=== PATIENT | female | born 1990 | race Two or more races ===

== ENCOUNTER 2018-11-16 21:35 | Observation (INO) | payer MEDICAID ==
[~2018-11-16] VITALS: Ht 167.6 cm; Wt 95.7 kg
[2018-11-16 22:57] LABS: Urine Bacteria FEW /hpf (None Seen); Urine Blood 3+ /uL (Negative); Urine Mucus FEW (None Seen); Urine Specific Gravity 1.021 (1.001-1.035); Urine WBC 69 /hpf (0 - 5)
== END 2018-11-16 23:38 | disposition home or self-care (01) | DRG 566 ==
LOC: LDRP 21:35
PROVIDERS: ADMIT Obstetrics & Gynecology; ATTEND Obstetrics & Gynecology
DX: O26.853 Spotting complicating pregnancy, third trimester (principal); O26.893 Other specified pregnancy related conditions, third trimester; N89.8 Other specified noninflammatory disorders of vagina; Z3A.36 36 weeks gestation of pregnancy; Z87.891 Personal history of nicotine dependence
CPT/HCPCS: 59025; 76815; 81001; 81002; G0378

== ENCOUNTER 2018-12-09 04:19 | Inpatient (IN) | payer MEDICAID ==
[~2018-12-09] VITALS: Ht 170.2 cm; Wt 96.2 kg
[2018-12-09] VITALS (13 sets, daily range): BP systolic 105–121; BP diastolic 61–78
[2018-12-09 05:54] LABS: Basophils # (auto) 0.1 uL; Basophils % (auto) 0.6 % (0.0-2.0); Eosinophils # (auto) 0.1 uL; Eosinophils % (auto) 0.9 % (0.0-7.0); Hematocrit 38.7 % (36.0-46.0); Hemoglobin 12.9 g/dL (12.2-16.2); Lymphocytes # (auto) 1.7 uL; Mean Corpuscular Hemoglobin 28.2 pg (28.0-32.0); Mean Corpuscular Hgb Conc. 33.2 g/dL (32.0-36.0); Monocytes # (auto) 0.4 uL; Monocytes % (auto) 4.1 % (0.0-12.0); Neutrophils # (auto) 8.5 uL; Neutrophils % (auto) 78.4 % (37.0-80.0); Platelet Count (auto) 218 10^3/uL (140-450); Red Blood Cells 4.55 10^6/uL (4.0-5.20); Red Cell Distribution Width 17.6 % (11.8-14.3); White Blood Cell 10.8 10^3/uL (4.4-10.8)
[2018-12-09 06:09] LABS: INR 0.83 (0.9-1.15); Partial Thromboplastin Time 27.1 sec (23.78-33.04)
[2018-12-09 06:15] LABS: Albumin 2.2 g/dL (3.4-5.0); BUN/Creatinine Ratio 10.2; Calcium 8.2 mg/dL (8.5-10.1); Potassium 3.8 mmol/L (3.5-5.1)
[2018-12-09 06:17] LABS: Bilirubin, Total 0.3 mg/dL (0.2-1.0); Total Protein 6.6 g/dL (6.4-8.2)
[2018-12-09 06:39] LABS: Urine Bacteria FEW /hpf (None Seen); Urine Blood TRACE /uL (Negative); Urine Mucus FEW (None Seen); Urine Specific Gravity 1.014 (1.001-1.035); Urine WBC 98 /hpf (0 - 5)
[2018-12-09] MEDS ORDERED: PREN-96 PO (06:52)
[2018-12-09] MEDS ORDERED: TETRACAINE 1% INJ 2 ML VIAL IJ ONE (06:53)
[2018-12-09] MEDS: LACTATED RINGER'S 1,000 ML IV SCH ×4 (06:54→20:37)
[2018-12-09] MEDS ORDERED: ONDANSETRON HCL 4 MG/2 ML VIAL ONE (07:01)
[2018-12-09] MEDS ORDERED: SODIUM CHLORIDE LOCK 20 ML ONE (07:01)
[2018-12-09] MEDS ORDERED: ceFAZolin 1GM VL ONE (07:01)
[2018-12-09] MEDS ORDERED: MORPHINE SULF(PF) 0.5MG/ML 10ML VIAL ONE (07:01)
[2018-12-09] MEDS ORDERED: OXYTOCIN 10 UNIT/ML 10ML VIAL ONE (07:01)
[2018-12-09] MEDS ORDERED: ePHEDrine SULFATE 50 MG/ML AMP ONE (07:01)
[2018-12-09] MEDS ORDERED: MIDAZOLAM HCL 1MG/1ML-2 ML VIAL ONE ×2 (07:01→09:34)
[2018-12-09] MEDS ORDERED: fentaNYL CITRATE 100 MCG/2 ML VL ONE (07:01)
[2018-12-09] MEDS ORDERED: EPINEPHrine HCL 1 MG/1 ML AMP ONE (07:04)
[2018-12-09] MEDS ORDERED: LACTATED RINGER'S 1,000 ML IV ONE (07:45)
[2018-12-09 08:45] LABS: Alcohol, Urine < 3.0 mg/dL (0-5); Amphetamine Screen, Urine NEGATIVE (NEGATIVE); Barbiturate Scree,Urine NEGATIVE (NEGATIVE); Benzodiazephine Screen, Urine NEGATIVE (NEGATIVE); Cannabinoid Screen, Urine NEGATIVE (NEGATIVE); Cocaine Screen, Urine NEGATIVE (NEGATIVE); Phencyclidine Screen, Urine NEGATIVE (NEGATIVE)
--- NOTE | 2018-12-09 09:23 | NUR ---
[place] Admission Note Repeat : Repeat of viable baby girl by . dried, stimulated, weighed, then taken to mother. Apgars 8/9. ID bands applied on , mother, and father. Education on the benefits of SSC and encouragement of given. Infant swaddled and taken to nursery by JESUS Francisco. Addendum: 12/09/18 at 1258 by FRANK DA SILVA RN Charted on incorrect pt.
--- NOTE | 2018-12-09 09:35 | NUR ---
NATALIE recnaga from Praveen Francisco RN. Addendum: 12/09/18 at 1258 by FRANK DA SILVA RN Charted on incorrect patient
--- NOTE | 2018-12-09 09:40 | NUR ---
Assessment: Footprints obtained, measurements, Dubowitz and assessment completed. swaddled and being held by FOB. Addendum: 12/09/18 at 1258 by FRANK DA SILVA RN Charted on incorrect pt.
[2018-12-09 10:02] LABS: Opiate Scree,Urine NEGATIVE (NEGATIVE)
[2018-12-09] MEDS ORDERED: LACTATED RINGER'S 1,000 ML IV SCH (10:09)
[2018-12-09] MEDS ORDERED: ONDANSETRON HCL 4 MG/2 ML VIAL IV PRN (10:15)
[2018-12-09] MEDS ORDERED: diphenhdrAMINE HCL 50 MG/1 ML VL IV PRN (10:15)
[2018-12-09] MEDS ORDERED: HYDROmorphone HCL 2 MG/ML VL IV PRN ×2 (10:15)
[2018-12-09] MEDS ORDERED: NALOXONE HCL 0.4 MG/ML VIAL IV PRN (10:15)
[2018-12-09] MEDS ORDERED: KETOROLAC TROMETH 30 MG/ML 1ML VIAL IV ONE (10:15)
[2018-12-09] MEDS ORDERED: METOCLOPRAMIDE HCL 5MG/ml INJ 2ml VIAL IV ONE (10:15)
--- NOTE | 2018-12-09 10:20 | NUR ---
Teaching: Infant taken to mother in PACU. Reviewed information in [facility] booklet with patient. Discussed benefits of and risks associated with not . Discussed different positions, proper latch, feeding cues, and baby-led . Provided information of medication side effects related to . All questions and concerns addressed at this time. Patient verbalized understanding of information. Infant latched without difficulty. Addendum: 12/09/18 at 1258 by FRANK DA SILVA RN Charted on incorrect pt.
--- NOTE | 2018-12-09 11:30 | NUR ---
Infant reswaddled and taken to nursery. Addendum: 12/09/18 at 1259 by FRANK DA SILVA RN Charted on incorrect pt.
--- NOTE | 2018-12-09 13:09 | NUR ---
Post Op for LDRP: Received patient from PACU via bed to room 8B. Patient A/A/Ox4, abdominal binder and bilateral SCD's are in place, IV fluids placed on pump and infusing per order, incisional site dressing clean/dry/intact and erickson catheter to gravity draining clear yellow urine. Incentive Spirometer at bedside and instruction on proper use with return demonstration done by patient. Vital signs taken.
--- NOTE | 2018-12-09 13:10 | NUR ---
Infant taken to room 8B to be with mother. Stable.
--- NOTE | 2018-12-09 13:20 | NUR ---
Sbar given to JESUS Brothers.
--- NOTE | 2018-12-09 13:25 | NUR ---
REPORT PT REPORT RECEIVED FROM Erica DA SILVA RN ON STABLE PATIENT, ASSUMING CARE. NO S/S OF DISTRESS OR SOB NOTED. PT LYING SEMIFOWLERS IN BED. PTS MCWILLIAMS CATHETER IS PATENT AND DRAINING YELLOW URINE TO GRAVITY, SCD 'S ON COMPRESSING BILATERAL LOWER EXTREMITIES, IV FLUIDS INFUSING PER MD ORDER. PT DENIES ANY PAIN AT THIS TIME. PTS FUNDUS IS 1 BELOW UMBILICUS, FIRM, SCANT RUBRA BLEEDING NOTED ON PAD. PTS ISLAND DRESSING IS INTACT, DRAINAGE CIRCLED FROM ASSOCIATE ENTERTAINMENT EDITOR, DRAINAGE REMAINS WITHIN CIRCLED BORDERS. BED IS LOCKED AND IN LOWEST POSITION, CALL LIGHT WITHIN REACH. WILL CONTINUE TO MONITOR.
[2018-12-09] MEDS: ceFAZolin 1GM/50ML 50 ML IV SCH (18:07)
[2018-12-09] MEDS: KETOROLAC TROMETH 30 MG/ML 1ML VIAL IV SCH ×2 (18:09→23:58)
--- NOTE | 2018-12-09 22:50 | NUR ---
Ambulation: Order to discontinue erickson catheter. Erickson dc'd with clean technique following deflation of balloon. Patient tolerated well with no complaints of pain. Patient ambulates with steady gait to bathroom, pericare provided with patient return demonstration of teaching. Patient provided with peripad and underwear and clean gown. Patient bed linen changed, patient returns to bed with steady gait. Will continue care.
[2018-12-10] MEDS: ceFAZolin 1GM/50ML 50 ML IV SCH ×2 (02:17→10:04)
[2018-12-10 02:37] VITALS: BP 107/18
[2018-12-10] MEDS: LACTATED RINGER'S 1,000 ML IV SCH (04:37)
[2018-12-10] MEDS: KETOROLAC TROMETH 30 MG/ML 1ML VIAL IV SCH (05:50)
[2018-12-10 06:25] LABS: Basophils # (auto) 0.1 uL; Basophils % (auto) 0.5 % (0.0-2.0); Eosinophils # (auto) 0.1 uL; Eosinophils % (auto) 1.1 % (0.0-7.0); Hematocrit 34.7 % (36.0-46.0); Hemoglobin 11.2 g/dL (12.2-16.2); Lymphocytes # (auto) 1.2 uL; Lymphocytes % (auto) 11.1 % (10.0-50.0); Mean Corpuscular Hemoglobin 27.8 pg (28.0-32.0); Mean Corpuscular Hgb Conc. 32.4 g/dL (32.0-36.0); Mean Corpuscular Volume 85.9 fL (80.0-100.0); Monocytes # (auto) 0.4 uL; Monocytes % (auto) 3.9 % (0.0-12.0); Neutrophils # (auto) 9.3 uL; Neutrophils % (auto) 83.4 % (37.0-80.0); Nucleated Red Blood Cells % 0.1 %; Platelet Count (auto) 186 10^3/uL (140-450); Red Blood Cells 4.04 10^6/uL (4.0-5.20); White Blood Cell 11.1 10^3/uL (4.4-10.8)
[2018-12-10 07:07] LABS: RPR Non Reactive (Non Reactive)
[2018-12-10 07:25] VITALS: BP 122/70
[2018-12-10] MEDS ORDERED: HYDROcodone-ACET 5/325MG TAB PO PRN (08:00)
[2018-12-10] MEDS ORDERED: ceFAZolin 1GM/50ML 50 ML IV ONE (10:02)
[2018-12-10] MEDS: DOCUSATE SOD 100 MG CAP PO SCH ×2 (10:03→22:11)
[2018-12-10 10:59] VITALS: BP 107/69
[2018-12-10] MEDS: HYDROcodone-ACET 5/325MG TAB PO PRN ×2 (13:33→20:10)
[2018-12-10 15:25] VITALS: BP 119/71
--- NOTE | 2018-12-10 16:30 | NUR ---
AMA PT REQUESTING TO LEAVE AMA DUE TO NO WORKING FOREMAN AT HOME FOR HER OTHER CHILDREN PT MOTHER AND SIG OTHER AT BEDSIDE EDUCATED ON RISKS OF LEAVING AMA. PT VERBALIZED UNDERSTANDING STATES SHE WILL LET ME KNOW HER DECISION. TERADATA DEVELOPER NOTIFIED AND AWARE.
[2018-12-10 19:30] VITALS: BP 134/72
[2018-12-10] MEDS: IBUPROFEN 800 MG TAB PO PRN (22:15)
[2018-12-10 23:00] VITALS: BP 111/69
[2018-12-11] MEDS: HYDROcodone-ACET 5/325MG TAB PO PRN ×3 (02:45→15:19)
[2018-12-11 03:00] VITALS: BP 115/72
--- NOTE | 2018-12-11 06:25 | NUR ---
REPORT: REPORT RECEIVED FROM POLICE LIAISON OFFICER RN TO RESUME CARE OF PT.
[2018-12-11 07:00] VITALS: BP 118/75
[2018-12-11] MEDS ORDERED: TETANUS-DIPTH-ACEL PERTUSSIS 0.5ML SYRG IM ONE (08:00)
--- NOTE | 2018-12-11 09:00 | NUR ---
MD VISIT: DR. SCHOFIELD IN AT BEDSIDE. UPDATED ON PT STATUS AND AWARE OF ALL CURRENT FINDINGS. NO NEW ORDERS RECEIVED AT TIME. CONTINUE CARE FOR SHIFT.
[2018-12-11] MEDS: DOCUSATE SOD 100 MG CAP PO SCH ×2 (10:01→22:20)
[2018-12-11 11:00] VITALS: BP 125/83
--- NOTE | 2018-12-11 12:51 | NUR ---
UPDATE: EDUCATION HAS BEEN PROVIDED THROUGHOUT SHIFT THUS FAR FOR . PT DOES VERBALIZE UNDERSTANDING, ALL QUESTIONS AND CONCERNS PROVIDED AND UPON BABY, THE BABY APPEARS TO HAVE A GOOD LATCH WITH AUDIBLE SUCKS AND SWALLOWS. NO NEEDS IDENTIFIED AT TIME. CALL LIGHT REMAINS IN PLACE FOR PATIENT USE IF NEEDED. PT HAS ALSO AMBULATED TO RESTROOM SEVERAL TIMES THROUGHOUT DAY THUS FAR AND TOLERATED WELL WITH VOIDING CLEAR YELLOW URINE.
[2018-12-11 15:00] VITALS: BP 128/81
--- NOTE | 2018-12-11 18:16 | NUR ---
REPORT: REPORT GIVEN TO HOSPITAL SUPERVISOR RN TO RESUME CARE OF PT.
[2018-12-11 19:30] VITALS: BP 127/75
--- NOTE | 2018-12-11 22:21 | NUR ---
Pt is requesting to be discharged, States she is just " I'm just too overwhelmed and need to go home I have no one to take care of my other kids, I'm tired and don't get any rest, I just need to go home." I explained to her that I would call Dr. Vasquez and explain her situation and would have the Charge Nurse to come in and talk to her. [id number] Kimberlyn More, RN unit Charge Nurse in speaking with patient regarding her wanting to be discharged. [address] Vasquez, I explained to him the pt's concerns and that the pt is asking to be discharged. Per Dr. Vasquez pt can leave if she wants but she will be leaving AMA. He stated that it is "too risky to send her home before she is ready to be discharged" [address] Montoya explained that the infants mother is asking to be discharged this evening, per Dr. Montoya infant may be discharged home. 2242 Spoke with patient explained that if she left she would be doing so against medical advice, explained that Dr. Montoya had discharged the baby home but Dr. Vasquez felt it too risky for her to leave before she was ready. Also explained to her that she would be going home without her prescription for medication that was written for her and that she would have to follow with Dr. Vasquez for her maurice to be removed. Pt verbalizes understanding, states she will be making a few phone calls to arrange for care for her other children
[2018-12-11 23:00] VITALS: BP 128/82
--- NOTE | 2018-12-11 23:10 | NUR ---
Pt has made a decision to stay until she is discharged in the morning,
[2018-12-11] MEDS: IBUPROFEN 800 MG TAB PO PRN (23:14)
[2018-12-12 03:00] VITALS: BP 116/73
[2018-12-12] MEDS: HYDROcodone-ACET 5/325MG TAB PO PRN ×2 (03:07→10:01)
[2018-12-12 07:00] VITALS: BP 107/63
--- NOTE | 2018-12-12 09:00 | NUR ---
maurice removed and tolerated well.incision looks clean and no signs of infection noted.no bleeding noted.steri strips applied.
--- NOTE | 2018-12-12 09:40 | NUR ---
Discharge: Discharge instructions given to mother of baby as ordered. Copies of and hearing screening, along with vaccination record given to mother. Mother encouraged to follow up with Molder Apprentice of choice and to give envelope with infants information to head start director at 1st office visit. All questions and concerns addressed. Mother of baby verbalized understanding and agreed to comply. Mother of baby encouraged to prepare for departure and notify RN ready to leave room for ID band removal/verification and car seat check.
--- NOTE | 2018-12-12 09:40 | NUR ---
Discharge: Discharge instructions given as ordered. Pt encouraged to follow up with STATISTICS PROFESSOR as instructed. All questions and concerns addressed. Patient verbalized understanding. Medication reconciliation completed and copy given to patient. All required/requested vaccines given and copies of vaccinations given to patient. Patient encouraged to prepare to depart unit.
[2018-12-12] MEDS: DOCUSATE SOD 100 MG CAP PO SCH (09:58)
--- NOTE | 2018-12-12 10:10 | NUR ---
Discharge: Patient taken to vehicle via wheelchair with all personal belongings, accompanied by staff and family member. No distress noted at time of departure, no adverse changes in status since initial assessment.
== END 2018-12-12 10:10 | disposition home or self-care (01) | DRG 540 ==
LOC: LDRP 04:19
PROVIDERS: ADMIT Specialist; ATTEND Specialist
PROC: 0DNW0ZZ Release Peritoneum, Open Approach (ICD-10-PCS; 2018-12-09)
PROC: 10D00Z1 Extraction of Products of Conception, Low, Open Approach (ICD-10-PCS; principal; 2018-12-09 08:43)
DX: O34.211 Maternal care for low transverse scar from previous cesarean delivery (principal); K66.0 Peritoneal adhesions (postprocedural) (postinfection); O99.62 Diseases of the digestive system complicating childbirth; Z37.0 Single live birth; Z3A.39 39 weeks gestation of pregnancy
CPT/HCPCS: 36415; 51702; 59025; 80053; 80307; 81001; 85025; 85610; 85730; 86592; 86850; 86900; 86901; 90715; 94762; 96365; 96366; 96375; G0378; J0171; J0690; J1885; J2250; J2405; J2590

== ENCOUNTER 2019-03-03 10:35 | Emergency (ER) | payer MEDICAID ==
[~2019-03-03] VITALS: Ht 170.2 cm; Wt 81.6 kg
[~2019-03-03 10:35] MED LIST: PREN-96 PO
[2019-03-03 10:42] VITALS: BP 106/70
[2019-03-03 11:23] LABS: Basophils # (auto) 0.1 uL; Eosinophils # (auto) 0.2 uL; Eosinophils % (auto) 2.1 % (0.0-7.0); Hematocrit 39.7 % (36.0-46.0); Hemoglobin 13.1 g/dL (12.2-16.2); Lymphocytes # (auto) 1.5 uL; Lymphocytes % (auto) 19.8 % (10.0-50.0); Mean Corpuscular Hemoglobin 28.9 pg (28.0-32.0); Mean Corpuscular Hgb Conc. 33.1 g/dL (32.0-36.0); Mean Corpuscular Volume 87.5 fL (80.0-100.0); Monocytes # (auto) 0.3 uL; Monocytes % (auto) 3.5 % (0.0-12.0); Neutrophils # (auto) 5.7 uL; Neutrophils % (auto) 73.6 % (37.0-80.0); Platelet Count (auto) 252 10^3/uL (140-450); Red Blood Cells 4.53 10^6/uL (4.0-5.20); Red Cell Distribution Width 15.7 % (11.8-14.3); White Blood Cell 7.7 10^3/uL (4.4-10.8)
[2019-03-03 13:36] LABS: Urine Bacteria NONE SEEN /hpf (None Seen); Urine Blood 3+ /uL (Negative); Urine Specific Gravity 1.002 (1.001-1.035); Urine WBC 23 /hpf (0 - 5)
== END 2019-03-03 13:13 | disposition home or self-care (01) ==
LOC: ER 10:35
DX: N93.8 Other specified abnormal uterine and vaginal bleeding (principal)
CPT/HCPCS: 36415; 76830; 76856; 81001; 84702; 85025

== ENCOUNTER 2021-02-05 11:35 | Observation (INO) | payer MEDICAID ==
[2021-02-05 12:47] LABS: Basophils # (auto) 0.1 10 ^3/uL (0-0.2); Basophils % (auto) 0.6 % (0.0-2.0); Eosinophils # (auto) 0.1 10 ^3/uL (0-0.8); Eosinophils % (auto) 0.6 % (0.0-7.0); Hematocrit 40.3 % (36.0-46.0); Hemoglobin 13.2 g/dL (12.2-16.2); Lymphocytes # (auto) 1.7 10 ^3/uL (0.4-5.4); Lymphocytes % (auto) 14.3 % (10.0-50.0); Mean Corpuscular Hemoglobin 27.5 pg (28.0-32.0); Mean Corpuscular Hgb Conc. 32.8 g/dL (32.0-36.0); Mean Corpuscular Volume 83.8 fL (80.0-100.0); Monocytes # (auto) 0.5 10 ^3/uL (0-1.3); Monocytes % (auto) 4.4 % (0.0-12.0); Neutrophils # (auto) 9.6 10 ^3/uL (1.6-8.6); Neutrophils % (auto) 80.1 % (37.0-80.0); Nucleated Red Blood Cells % 0.1 %; Red Blood Cells 4.82 10^6/uL (4.0-5.20); Red Cell Distribution Width 15.2 % (11.8-14.3)
[2021-02-05 12:53] LABS: Urine Amorphous Crystal FEW /hpf (None Seen); Urine Bacteria MANY /hpf (None Seen); Urine Blood TRACE /uL (Negative); Urine WBC 16 /hpf (0 - 5)
[2021-02-05 13:09] LABS: INR 0.92 (0.9-1.15); Partial Thromboplastin Time 27.3 sec (23.0-31.2)
[2021-02-05 13:32] LABS: Albumin 2.4 g/dL (3.4-5.0); Calcium 8.7 mg/dL (8.5-10.1)
[2021-02-05 13:34] LABS: Amphetamine Screen, Urine NEGATIVE (NEGATIVE); Barbiturate Scree,Urine NEGATIVE (NEGATIVE); Benzodiazephine Screen, Urine NEGATIVE (NEGATIVE); Cannabinoid Screen, Urine NEGATIVE (NEGATIVE); Cocaine Screen, Urine NEGATIVE (NEGATIVE); Opiate Scree,Urine NEGATIVE (NEGATIVE); Phencyclidine Screen, Urine NEGATIVE (NEGATIVE)
[2021-02-05 13:35] LABS: Protein, Urine 9.3 mg/dL (0.0-11.9)
[2021-02-05 13:42] LABS: BUN/Creatinine Ratio 21.3; Bilirubin, Total 0.4 mg/dL (0.2-1.0); Potassium 3.8 mmol/L (3.5-5.1); Total Protein 7.2 g/dL (6.4-8.2)
== END 2021-02-05 14:12 | disposition home or self-care (01) ==
LOC: LDRP 11:35
PROVIDERS: ADMIT Obstetrics & Gynecology; ATTEND Obstetrics & Gynecology
DX: O13.3 Gestational [pregnancy-induced] hypertension without significant proteinuria, third trimester (principal); Z3A.38 38 weeks gestation of pregnancy
CPT/HCPCS: 36415; 59025; 76818; 80053; 80307; 81001; 82570; 84156; 84550; 85025; 85610; 85730; G0378

== ENCOUNTER 2021-02-09 12:34 | Observation (INO) | payer MEDICAID | END 2021-02-09 13:55 | disposition home or self-care (01) | LOC: LDRP 12:34 | PROVIDERS: ADMIT Specialist; ATTEND Specialist | DX: Z01.812 Encounter for preprocedural laboratory examination (principal); Z20.822 Contact with and (suspected) exposure to COVID-19; O34.219 Maternal care for unspecified type scar from previous cesarean delivery; Z91.040 Latex allergy status; Z3A.38 38 weeks gestation of pregnancy | CPT/HCPCS: 59025; 81002; G0378; U0003 ==

== ENCOUNTER 2021-02-10 07:40 | Inpatient (IN) | payer MEDICAID ==
[~2021-02-10] VITALS: Ht 170.2 cm; Wt 99.8 kg
[2021-02-10] VITALS (13 sets, daily range): BP systolic 95–121; BP diastolic 53–67
[2021-02-10] MEDS ORDERED: LACTATED RINGER'S 1,000 ML IV ONE (08:00)
[2021-02-10] MEDS ORDERED: ceFAZolin 1GM/50ML 50 ML IV ONE (08:00)
[2021-02-10] MEDS ORDERED: LACTATED RINGER'S 1,000 ML IV SCH (08:00)
[2021-02-10 08:56] LABS: Basophils # (auto) 0 10 ^3/uL (0-0.2); Basophils % (auto) 0.4 % (0.0-2.0); Eosinophils # (auto) 0.1 10 ^3/uL (0-0.8); Hematocrit 38.2 % (36.0-46.0); Hemoglobin 12.3 g/dL (12.2-16.2); Lymphocytes # (auto) 1.9 10 ^3/uL (0.4-5.4); Lymphocytes % (auto) 16.1 % (10.0-50.0); Mean Corpuscular Hemoglobin 27.3 pg (28.0-32.0); Mean Corpuscular Hgb Conc. 32.2 g/dL (32.0-36.0); Mean Corpuscular Volume 84.9 fL (80.0-100.0); Monocytes # (auto) 0.5 10 ^3/uL (0-1.3); Monocytes % (auto) 4.4 % (0.0-12.0); Neutrophils # (auto) 9.2 10 ^3/uL (1.6-8.6); Neutrophils % (auto) 78.1 % (37.0-80.0); Nucleated Red Blood Cells % 0.1 %; Platelet Count (auto) 213 10^3/uL (140-450); Red Cell Distribution Width 15.4 % (11.8-14.3); White Blood Cell 11.8 10^3/uL (4.4-10.8)
[2021-02-10 09:11] LABS: Albumin 2.2 g/dL (3.4-5.0); Calcium 8.1 mg/dL (8.5-10.1); Potassium 3.8 mmol/L (3.5-5.1)
[2021-02-10 09:14] LABS: Urine Bacteria MOD /hpf (None Seen); Urine Blood 1+ /uL (Negative); Urine Mucus FEW (None Seen); Urine Specific Gravity 1.015 (1.001-1.035); Urine WBC 37 /hpf (0 - 5)
[2021-02-10 09:15] LABS: BUN/Creatinine Ratio 21.4; Bilirubin, Total 0.4 mg/dL (0.2-1.0); Total Protein 6.5 g/dL (6.4-8.2)
[2021-02-10 09:16] LABS: Alcohol, Urine < 3.0 mg/dL (0-10); Amphetamine Screen, Urine NEGATIVE (NEGATIVE); Barbiturate Scree,Urine NEGATIVE (NEGATIVE); Benzodiazephine Screen, Urine NEGATIVE (NEGATIVE); Cannabinoid Screen, Urine NEGATIVE (NEGATIVE); Cocaine Screen, Urine NEGATIVE (NEGATIVE); Opiate Scree,Urine NEGATIVE (NEGATIVE); Phencyclidine Screen, Urine NEGATIVE (NEGATIVE)
[2021-02-10 09:42] LABS: INR 0.92 (0.9-1.15); Partial Thromboplastin Time 27.2 sec (23.0-31.2)
[2021-02-10] MEDS ORDERED: TETRACAINE 1% INJ 2 ML VIAL IJ ONE (12:13)
[2021-02-10] MEDS ORDERED: SODIUM CHLORIDE LOCK 10 ML ONE (12:16)
[2021-02-10] MEDS ORDERED: EPINEPHrine HCL 1 MG/1 ML AMP ONE (12:16)
[2021-02-10] MEDS ORDERED: MORPHINE SULF(PF) 0.5MG/ML 10ML VIAL ONE (12:16)
[2021-02-10] MEDS ORDERED: ONDANSETRON HCL 4 MG/2 ML VIAL ONE (12:16)
[2021-02-10] MEDS ORDERED: ePHEDrine SULFATE 50 MG/ML AMP ONE (12:16)
[2021-02-10] MEDS ORDERED: oxyTOCIN 10 UNIT/ML 10ML VIAL ONE (12:16)
[2021-02-10] MEDS ORDERED: fentaNYL CITRATE 100 MCG/2 ML VL ONE (12:16)
[2021-02-10] MEDS ORDERED: MIDAZOLAM HCL 1MG/1ML-2 ML VIAL ONE (12:16)
[2021-02-10] MEDS ORDERED: METOCLOPRAMIDE HCL 5MG/ml INJ 2ml VIAL ONE (13:25)
[2021-02-10] MEDS ORDERED: GUM (CHEWING) 1 GUM CHEW CHEW ONE (14:00)
[2021-02-10] MEDS ORDERED: HYDROmorphone HCL 2 MG/ML VL IV PRN ×2 (14:00→14:15)
[2021-02-10] MEDS ORDERED: ceFAZolin 1GM/50ML 50 ML IV SCH (14:00)
[2021-02-10] MEDS ORDERED: ONDANSETRON HCL 4 MG/2 ML VIAL IV PRN ×2 (14:00→14:15)
[2021-02-10] MEDS ORDERED: NALOXONE HCL 0.4 MG/ML VIAL IV PRN (14:15)
[2021-02-10] MEDS ORDERED: MORPHINE SULFATE 4 MG/ML SYR/VIAL IV PRN (14:15)
[2021-02-10] MEDS ORDERED: KETOROLAC TROMETH 30 MG/ML 1ML VIAL IV ONE (14:15)
[2021-02-10] MEDS ORDERED: METOCLOPRAMIDE HCL 5MG/ml INJ 2ml VIAL IV PRN (14:15)
[2021-02-10] MEDS ORDERED: diphenhdrAMINE HCL 50 MG/1 ML VL IV PRN (14:15)
[2021-02-10] MEDS: KETOROLAC TROMETH 30 MG/ML 1ML VIAL IV PRN (17:36)
[2021-02-10] MEDS: LACTATED RINGER'S 1,000 ML IV SCH (20:08)
[2021-02-10] MEDS: ceFAZolin 1GM/50ML 50 ML IV SCH (20:08)
[2021-02-11] VITALS (15 sets, daily range): BP systolic 97–128; BP diastolic 46–74
[2021-02-11] MEDS: KETOROLAC TROMETH 30 MG/ML 1ML VIAL IV PRN ×2 (02:12→08:51)
[2021-02-11] MEDS: ceFAZolin 1GM/50ML 50 ML IV SCH ×2 (04:03→12:19)
[2021-02-11] MEDS: LACTATED RINGER'S 1,000 ML IV SCH (05:19)
[2021-02-11 06:06] LABS: RPR Non Reactive (Non Reactive)
[2021-02-11 06:50] LABS: Basophils # (auto) 0.1 10 ^3/uL (0-0.2); Basophils % (auto) 0.5 % (0.0-2.0); Eosinophils # (auto) 0.1 10 ^3/uL (0-0.8); Hematocrit 33.8 % (36.0-46.0); Hemoglobin 11.1 g/dL (12.2-16.2); Lymphocytes # (auto) 1.5 10 ^3/uL (0.4-5.4); Lymphocytes % (auto) 13.1 % (10.0-50.0); Mean Corpuscular Hemoglobin 27.8 pg (28.0-32.0); Mean Corpuscular Hgb Conc. 32.7 g/dL (32.0-36.0); Mean Corpuscular Volume 84.9 fL (80.0-100.0); Monocytes # (auto) 0.5 10 ^3/uL (0-1.3); Monocytes % (auto) 4.1 % (0.0-12.0); Neutrophils # (auto) 9.6 10 ^3/uL (1.6-8.6); Neutrophils % (auto) 81.3 % (37.0-80.0); Nucleated Red Blood Cells % 0.1 %; Platelet Count (auto) 188 10^3/uL (140-450); Red Blood Cells 3.98 10^6/uL (4.0-5.20); Red Cell Distribution Width 15.4 % (11.8-14.3); White Blood Cell 11.7 10^3/uL (4.4-10.8)
[2021-02-11] MEDS ORDERED: SIMETHICONE 80 MG CHEWABLE TABLET PO PRN (13:45)
[2021-02-11] MEDS ORDERED: HYDROcodone-ACET 5/325MG TAB PO PRN (13:45)
[2021-02-11] MEDS: HYDROcodone-ACET 5/325MG TAB PO PRN ×2 (15:49→22:56)
[2021-02-11] MEDS: DOCUSATE SOD 100 MG CAP PO SCH (22:11)
[2021-02-12 03:00] VITALS: BP 116/76
[2021-02-12] MEDS: HYDROcodone-ACET 5/325MG TAB PO PRN ×2 (03:17→07:17)
[2021-02-12 07:00] VITALS: BP_SYST 114; BP_SYST 121; BP_DIAS 61; BP_DIAS 75
[2021-02-12] MEDS: DOCUSATE SOD 100 MG CAP PO SCH (10:36)
[2021-02-12 11:00] VITALS: BP 116/70
[2021-02-12] MEDS ORDERED: HYDR-4902 PO (12:46)
[2021-02-12 14:10] VITALS: BP 120/60
== END 2021-02-12 14:25 | disposition home or self-care (01) | DRG 540 ==
LOC: LDRP 07:40
PROVIDERS: ADMIT Specialist; ATTEND Specialist
PROC: 10D00Z1 Extraction of Products of Conception, Low, Open Approach (ICD-10-PCS; principal; 2021-02-10 12:28)
DX: O34.211 Maternal care for low transverse scar from previous cesarean delivery (principal); R71.0 Precipitous drop in hematocrit; Z37.0 Single live birth; Z3A.39 39 weeks gestation of pregnancy
CPT/HCPCS: 36415; 80053; 80307; 81001; 85025; 85610; 85730; 86592; 86850; 86900; 86901; 94762; 96360; 96361; 96374; 96375; G0378; J0171; J0690; J1885; J2250; J2405; J2590